=== PATIENT | female | born 1995 | race Caucasian/White ===

== ENCOUNTER 2025-03-13 23:43 | Emergency (ER) | payer OTHER, SELFPAY ==
[2025-03-13 23:52] VITALS: BP 173/99; PULSE 98; RESP 14; TEMP 36.7; O2SAT 100; BMI 35.9
--- NOTE | 2025-03-13 23:55 | XR_ITS ---
PROCEDURE INFORMATION: Exam: XR Left Hand Exam date and time: 03/14/2025 12:16 AM Age: 29 years old Clinical indication: Pain; Hand; Left; Additional info: Dog bite 3rd digit TECHNIQUE: Imaging protocol: Radiologic exam of the left hand. Views: 3 or more views. COMPARISON: No relevant prior studies available. FINDINGS: Bones/joints: No acute displaced fracture, dislocation or osseous destructive process. Question nondisplaced fracture of the distal tuft of the 3rd digit. Soft tissues: Soft tissue swelling of the distal aspect of the 3rd digit. No radiopaque foreign body. IMPRESSION: 1. Question nondisplaced fracture of the distal tuft of the 3rd digit. 2. Soft tissue swelling of the distal 3rd digit. No radiopaque foreign body.
--- NOTE | 2025-03-14 00:08 | ED_ITS ---
Discharge Plan Disposition Patient Disposition: Home, Self-Care Condition: Good Prescriptions Prescriptions: New amoxicillin-pot clavulanate 875-125 mg tablet 1 tab PO BID 7 Days Qty: 14 0RF amoxicillin-pot clavulanate 875-125 mg tablet 1 tab PO BID 7 Days Qty: 14 0RF amoxicillin-pot clavulanate 875-125 mg tablet 1 tab PO BID 7 Days Qty: 14 0RF Referrals Follow up/Referrals: Moises Stearns DO [Primary Care Provider, Family Practice] - See instructions Activity Restrictions/Add. Instructions Additional Instructions/Restrictions: Please take antibiotics as prescribed for treatment of dog bite. Please follow- up with your primary care provider. Please return to the emergency department if you develop any new or worsening symptoms or become concerned for your health. Clinical Impressions Clinical Impression: Dog bite Qualifiers: Encounter type: initial encounter Qualified Code(s): W54.0XXA - Bitten by dog, initial encounter Subungual hematoma of digit of hand Qualifiers: Encounter type: initial encounter Qualified Code(s): S60.10XA - Contusion of unspecified finger with damage to nail, initial encounter Instructions Patient Instructions: Animal Bites Print Language Print Language: Tristanian Discharge ED Provider: Raffy Jackson General Adult HPI General Chief complaint: Animal Bite Stated complaint: dog bite finger Time Seen by Provider: 03/13/25 23:45 Mode of Arrival: Ambulatory Source of Information: Patient Description of Symptoms (Recalled from ER Triage Doc. by RN): Pt reports her dogs got into fight and ended up with bite to 3rd digit to left hand. Bleeding controlled. Pt reports dog shots are UTD. History of Present Illness HPI narrative: 29-year-old female presents after having her left third digit bit by her dog. She reports the dog's shots are up-to-date. She has some bruising underneath the fingernail as well as some lacerations to the distal finger. It happened shortly prior to arrival. Related Data Previous Rx's ?Medication ?Instructions ?Recorded amoxicillin 875 mg-potassium 1 tab PO BID 7 days #14 t abs 03/14/25 clavulanate 125 mg tablet amoxicillin 875 mg-potassium 1 tab PO BID 7 days #14 t abs 03/14/25 clavulanate 125 mg tablet amoxicillin 875 mg-potassium 1 tab PO BID 7 days #14 t abs 03/14/25 clavulanate 125 mg tablet Allergies Allergy/AdvReac Type Severity Reaction Status Date / Time cefixime (From Suprax) Allergy Other Verified 03/13/25 23:59 [facility] Disclaimer: The information contained in this section may have been updated after the patient was seen, as this information can be updated by other users. Social History Smoking Status: Never smoker alcohol intake: never current occupational status: employed Travel in the last 8 weeks?: None ROS Obtained: Yes All systems reviewed & no additional complaints except as documented Physical Exam General General appearance: alert and in no apparent distress Head Head exam: atraumatic and normocephalic Eye Eye exam: Present normal appearance, PERRL and EOMI ENT ENT exam: Present normal oropharynx and normal external ear exam Neck Neck exam: Present normal inspection and full ROM Chest Chest inspection: Present normal inspection and symmetric chest wall rise; Absent tenderness Respiratory Respiratory exam: Present normal lung sounds bilaterally; Absent respiratory distress Cardiovascular Cardiovascular exam: Present regular rate and normal rhythm Abdominal Exam Abdominal exam: Present soft; Absent distention, tenderness or guarding Extremities Exam Extremities exam: Present other (Subungual hematoma of the left third digit. Small laceration lateral to the fingernail.); Absent edema or joint swelling Back Exam Back exam: Present normal inspection; Absent tenderness Neurological Exam Neurological exam: Present alert and oriented X3; Absent motor sensory deficit Psychiatric Psychiatric exam: Present normal affect and normal mood Skin Skin exam: Present warm, dry and normal color Lymphatic Lymphatic Findings: no adenopathy Medical Decision Making Medical Records Medical records reviewed: Yes I reviewed the patient's medical records. Screening: Per USPSTF and CDC recommendations, given the prevalence of disease in our region, it is our hospital?s policy to screen for HIV and viral Hepatitis for all patients aged 18 and over and those with ongoing risk factors. Sohan Inquiry Pt receiving controlled substance: No Sohan was queried for this patient: No Vital Signs: 03/13/25 23:52 03/14/25 00:59 Temperature 98.1 F 97.8 F Temperature Source Oral Oral Pulse Rate 89 Pulse Rate [Left] 98 H Respiratory Rate 14 14 Blood Pressure 138/86 Blood Pressure [Right Arm] 173/99 H Blood Pressure Mean [Right Arm] 123 Blood Pressure Source Automatic Cuff Blood Pressure Source [Right Arm] Automatic Cuff Blood Pressure Position Sitting Blood Pressure Position [Right Arm] Sitting 02 Sat by Pulse Oximetry 100 Oxygen Delivery Method Room Air Room Air Lab Data Lab results reviewed: Yes I reviewed the patient's lab results. Orders (Tests/Meds): ED MEDICATIONS Discontinued Medications Generic Name Dose Route Start Last Admin Trade Name Dann PRN Reason Stop Dose Admin Amoxicillin/Clavulanate Potassium 1 each 03/13/25 23:55 03/14/25 00:12 Amoxicillin/Clavulanate Potassium 875/125mg Tablet PO 03/13/25 23:56 1 each ONCE ONE Administration Tetanus/Reduced Diphtheria/Acell Pertussis 0.5 ml 03/13/25 23:55 03/14/25 00:12 Tet/Diphth/Pert-Adult 0.5ml Syringe IM 03/13/25 23:56 0.5 ml .ONCE ONE Administration ORDERS Category Date Time Status Hand XR left minimum 3 views [XR hand LT min 3V] Stat Exams 03/13/25 23:55 Completed Medical Decision Narrative: 29-year-old female without significant past medical history presents for dog bite to the left third distal digit. History was obtained via interactive discussion with patient, family. On arrival, patient is [afebrile, hemodynamically stable, satting appropriately, alert, oriented x4, GCS 15], moving all extremities spontaneously. Full physical exam performed and significant for findings as documented above, subungual hematoma with small laceration adjacent Differential includes but is not limited to fracture, laceration, subungual hematoma. Patient was given Augmentin and Tdap for symptomatic management and correction of underlying abnormalities. Workup initiated including radiograph of the left hand.. On re-evaluation, patient [remains afebrile, HD stable.] Imaging independently interpreted by me and significant for possible nondisplaced fracture of the left distal phalanx of the third digit. See radiology read for full review of final results. Given patient history, exam and workup, patient's presentation most likely represents dog bite with subungual hematoma and small laceration, possible tuft fracture. I communicated these findings with patient. The wound was cleaned. The hematoma was relieved with Bovie cautery. I did not repair the laceration due to concern for infection. She was given wound care instructions, placed in a small AlumaFoam splint by me for possible tuft fracture. Return precautions given. Procedures Risk/Benefits of Procedure(s) Were Explained: Yes Orthopedic Splinting/Casting Injury #1: Side: left Upper Extremity Injury Location: finger (3rd) Upper Extremity Immobilizer: aluminum form splint Post Cast/Splinting Neuro Status: intact Post Cast/Splinting Vasc Status: intact Nail Trephination Location (finger): left and middle Sterile prep: chlorhexidine Method of drainage: nail cautery Procedure successful: Yes Patient tolerated procedure: no complications Critical Care Critical Care Time Critical Care Time: No
[2025-03-14] MEDS: AMOXICILLIN/CLAVULANATE POTASSIUM 875/125MG TABLET 1 EACH PO (00:12)
[2025-03-14] MEDS: TET/DIPHTH/PERT-ADULT 0.5ML SYRINGE 0.5 ML IM (00:12)
--- OUTSIDE RECORDS SUMMARY | 2025-03-14 00:47 | XMS_ITS | Data Portability ---
Author Organization [employer] [place] [facility] Address [address] [place] [address] Assessment Encounter Date Assessment Date Assessment LastModified by Organization Details LastModified Time 03/24/2023 03/24/2023 Annual gynecological exam performed. Patient will come back in a year unless there are new symptoms. [email or web address] Not available 03/24/2023 10:34:26 Plan of Treatment Reminders Order Date Submit Date Provider Last Modified By Organization Details Last Modified Time Details Appointments None recorded. Lab TSH, serum or plasma 2023 024 [email or web address] [facility], [address], [place], [address], 4 09:47:01 CMP, serum or plasma 2023 024 [email or web address] [facility], [address], [place], [address], 4 09:47:01 CBC w/ auto diff 2023 024 [email or web address] [facility], [address], [place], [address], 4 09:47:01 vitamin D, 25-hydroxy , total, serum 2023 024 [email or web address] [facility], [address], [place], [address], 4 09:47:01 vitamin B12 + folate, serum or blood 2023 024 [email or web address] [facility], [address], [place], [address], 4 09:47:01 HbA1c (hemoglobi n A1c), blood 2023 024 [email or web address] [facility], [address], [place], [address], 4 09:47:01 vitamin D, 25-hydroxy , total, serum 2023 024 [facility] [address] [place], [address], 4 08:16:32 CBC w/ auto diff 2023 024 [facility] [address] [place], [address], 4 08:16:30 CMP, serum or plasma 2023 024 [facility] [address] [place], [address], 4 08:16:31 TSH + free T4, serum 2023 024 [email or web address] [address] [place], [address], 4 08:16:29 vitamin B12 + folate, serum or blood 2023 024 [email or web address] ([place]), [address] [place], [address], 4 08:16:31 HbA1c (hemoglobi n A1c), blood 2023 024 [email or web address] [address] [place], [address], 4 08:16:32 unlisted lab - sureswab(R ) advanced vaginitis plus, tma 2022 023 [email or web address] [facility], [address], [place], [address], 3 10:34:34 pap, LB 2022 023 [employer] [facility], [address], [place], [address], 3 11:47:37 Referral None recorded. Procedures None recorded. Surgeries None recorded. Imaging US, pelvis 2022 023 [facility], [address], [place], [address], 3 11:39:25 Medication Orders Myfembree 40 mg-1 mg-0.5 mg tablet 2022 023 [email or web address] 24 Not available 4 09:40:17 ceftriaxon e 500 mg solution for injection 2022 023 [email or web address] 24 Not available 4 09:39:55 metronidaz ole 500 mg tablet 2022 024 [email or web address] Not available 4 16:23:24 doxycyclin e hyclate 100 mg capsule 2022 024 [email or web address] Not available 4 16:19:18 Patient TargetsNo targets recorded. Patient Instructions Encounter Date Encounter Id Patient Instructions Last Modified By Organization Details Last Modified Time 11/24/2023 [id number] body mass index: care instructions Not available 11/24/2023 10:04:47 learning about healthy weight Not available 11/24/2023 10:04:48 Reason for Referral None Reported. Results Created Date Observation Date Name Description Value Unit Range Abnormal Flag Note LastModifiedBy Organization Detail LastModifiedTime 03/24/20 23 03/25/2023 SURES WAB(R ) ADVAN DEJUAN VAGIN ITIS PLUS, TMA sureswab(R) adv bacterial vaginosis (bv), tma NEGATI VE negati ve normal Not Available [facility] [address] [facility], [place], [address], 03/25/2023 12:13:11 03/24/20 23 03/25/2023 SURES WAB(R ) ADVAN DEJUAN VAGIN ITIS PLUS, TMA alisson species NOT DETECT ED not detect ed normal Not Available [facility] [address] [facility] [facility], [place], [address], 03/25/2023 12:13:11 03/24/2003/25/2023 SURES WAB(R ) ADVAN DEJUAN VAGIN ITIS PLUS, TMA alisson glabrata NOT DETECT ED not detect ed normal Qi da speci es C. albic ans, C. tropi calis , C. parap michelle is, and/o r C. dubli niens is can be detec inge, but not diffe renti ated, in the Qi da spp. resul t. Not Available [facility] [address] [facility] [facility], [place], [address], 03/25/2023 12:13:11 03/24/20 23 03/25/2023 SURES WAB(R ) ADVAN DEJUAN VAGIN ITIS PLUS, TMA trichomonas vaginalis (TV), tma NOT DETECT ED not detect ed normal Not Available [facility] [address], [place], [address], 03/25/2023 12:13:11 03/24/20 23 03/25/2023 SURES WAB(R ) ADVAN DEJUAN VAGIN ITIS PLUS, TMA chlamydia trachomatis RNA, tma, urogenital NOT DETECT ED not detect ed normal Not Available [facility] [address] [facility], [place], [address], 03/25/2023 12:13:11 03/24/20 23 03/25/2023 SURES WAB(R ) ADVAN DEJUAN VAGIN ITIS PLUS, TMA neisseria gonorrhoeae RNA, tma, urogenital NOT DETECT ED not detect ed normal For addit ional infor paty thrasher refer to https ://ed ucati on.qu estdi UYA100. com/f aq/FA Q154 (This link is being provi ded for infor jeff alcala/ sin pepper purpo ses only. ) Not Available [facility] [address], [place], [place], [address], 03/25/2023 12:13:11 03/24/20 23 03/29/2023 IMAGE -GUID ED PAP W/AGE BASED SCR LEVI COLS comment This order for age-b ased cervi mallory cance r and STI scree david follo ws ACOG guide lines (PB 168, 140, FAQ07 1). See indiv idual assay s for perfo rming site locat ion. Not Available [facility] [address], [place], [place], [address], 03/29/2023 11:47:37 03/24/20 23 03/29/2023 IMAGE -GUID ED PAP W/AGE BASED SCR LEVI COLS clinical information: normal None given Not Available [facility] [address], [place], [place], [address], 03/29/2023 11:47:37 03/24/20 23 03/29/2023 IMAGE -GUID ED PAP W/AGE BASED SCR LEVI COLS LMP: normal NONE GIVEN Not Available [facility] [address], [place], [place], [address], 03/29/2023 11:47:37 03/24/20 23 03/29/2023 IMAGE -GUID ED PAP W/AGE BASED SCR LEVI COLS prev. Pap: normal NONE GIVEN Not Available [facility] [address], [place], [address], 03/29/2023 11:47:37 03/24/20 23 03/29/2023 IMAGE -GUID ED PAP W/AGE BASED SCR LEVI COLS prev. BX: normal NONE GIVEN Not Available [facility] [address] [facility] [facility], [place], [address], 03/29/2023 11:47:37 03/24/20 23 03/29/2023 IMAGE -GUID ED PAP W/AGE BASED SCR LEVI COLS source: normal Vagin a, Cervi x, Endoc ervix Not Available [facility] [address] [facility], [place], [address], 03/29/2023 11:47:37 03/24/20 23 03/29/2023 IMAGE -GUID ED PAP W/AGE BASED SCR LEVI COLS statement of adequacy: normal Satis facto ry for evalu ation . Endoc ervic al/tr ansfo rmati on zone compo nent prese nt. Age and/o r menst rual statu s not provi ded Not Available [facility] [address] [facility], [place], [address], 03/29/2023 11:47:37 03/24/20 23 03/29/2023 IMAGE -GUID ED PAP W/AGE BASED SCR LEVI COLS interpretati on/result: normal Cytol ogy Resul ts: Negat dave for intra epith elial lesio n or malig bria . Not Available [facility] [address] [facility], [place], [address], 03/29/2023 11:47:37 03/24/20 23 03/29/2023 IMAGE -GUID ED PAP W/AGE BASED SCR LEVI COLS comment: normal This Pap test has been evalu ated with compu ter sidney inge techn ology . Not Available [facility] [address] [facility] [address] [facility], [place], [address], 03/29/2023 11:47:37 03/24/20 23 03/29/2023 IMAGE -GUID ED PAP W/AGE BASED SCR LEVI COLS cytotechnolo gist: normal SZS, CT( CP) CT Scree david locat ion: [facility] [place] [address] [address] Not Available [facility] [address] [facility], [place], [address], 03/29/2023 11:47:37 03/24/20 23 03/29/2023 IMAGE -GUID ED PAP W/AGE BASED SCR LEVI COLS comment EXPLA NATOR Y NOTE: The Pap is a scree david test for cervi mallory cance r. It is not a diagn ostic test and is subje ct to false negat dave and false posit dave resul ts. It is most relia ble when a satis facto ry sampl e, regul bacilio obtai jacqueline, is submi tted with relev ant clini mallory findi ngs and histo ry, and when the Pap resul t is evalu ated along with histo jc and curre nt clini mallory infor matio n. Not Available [facility] [address] [facility], [place], [address], 03/29/2023 11:47:37 11/24/19 24 11/25/2023 TSH+F REE T4 TSH 2.520 uIU/m L 0.450- 4.500 normal Not Available [facility] ([facility]) [address] [facility], [place], [address], 11/25/2023 08:16:29 11/24/19 24 11/25/2023 TSH+F REE T4 T4,free(dire ct) 1.23 NG/dL 0.82-1 .77 normal Not Available [facility] ([facility]) [address] [facility], [place], [address], 11/25/2023 08:16:29 11/24/19 24 11/25/2023 CBC WITH DIFFE RENTI AL/PL ATELE T WBC 8.9 x10e3 /uL 3.4-10 .8 normal Not Available [facility] ([facility]) [address] [place], [address], 11/25/2023 08:16:30 11/24/19 24 11/25/2023 CBC WITH DIFFE RENTI AL/PL ATELE T RBC 4.63 x10e6 /uL 3.77-5 .28 normal Not Available [facility] ([facility]) [address] [place], [address], 11/25/2023 08:16:30 11/24/1911/25/2023 CBC WITH DIFFE RENTI AL/PL ATELE T hemoglobin 12.0 g/dL 11.1-1 5.9 normal Not Available [facility] ([facility]) [address] [place], [address], 11/25/2023 08:16:30 11/24/1911/25/2023 CBC WITH DIFFE RENTI AL/PL ATELE T hematocrit 38.5 % 34.0-4 6.6 normal Not Available [facility] ([facility]) [address] [place], [address], 11/25/2023 08:16:30 11/24/1911/25/2023 CBC WITH DIFFE RENTI AL/PL ATELE T MCV 83 fL 79-97 normal Not Available [facility] ([facility]) [address] [place], [address], 11/25/2023 08:16:30 11/24/1911/25/2023 CBC WITH DIFFE RENTI AL/PL ATELE T MCH 25.9 pg 26.6-3 3.0 below low normal Not Available [facility] ([facility]) [address] [place], [address], 11/25/2023 08:16:30 11/24/1911/25/2023 CBC WITH DIFFE RENTI AL/PL ATELE T MCHC 31.2 g/dL 31.5-3 5.7 below low normal Not Available [facility] ([facility]) [address] [facility], [place], [address], 11/25/2023 08:16:30 11/24/19 24 11/25/2023 CBC WITH DIFFE RENTI AL/PL ATELE T RDW 15.2 % 11.7-1 5.4 Not Available [facility] ([facility]) [address] [facility], [place], [address], 11/25/2023 08:16:30 11/24/1911/25/2023 CBC WITH DIFFE RENTI AL/PL ATELE T platelets 267 x10e3 /uL 150-45 0 normal Not Available [facility] ([facility]) [address] [place], [address], 11/25/2023 08:16:30 11/24/19 24 11/25/2023 CBC WITH DIFFE RENTI AL/PL ATELE T neutrophils 59 % not estab. normal Not Available [facility] ([facility]) [address] [place], [address], 11/25/2023 08:16:30 11/24/19 24 11/25/2023 CBC WITH DIFFE RENTI AL/PL ATELE T lymphs 30 % not estab. normal Not Available [facility] ([facility]) [address] [place], [address], 11/25/2023 08:16:30 11/24/19 24 11/25/2023 CBC WITH DIFFE RENTI AL/PL ATELE T monocytes 7 % not estab. normal Not Available [facility] ([facility]) [address] [place], [address], 11/25/2023 08:16:30 11/24/19 24 11/25/2023 CBC WITH DIFFE RENTI AL/PL ATELE T eos 2 % not estab. normal Not Available [facility] ([facility]) [address] [place], [address], 11/25/2023 08:16:30 11/24/19 24 11/25/2023 CBC WITH DIFFE RENTI AL/PL ATELE T basos 1 % not estab. normal Not Available [facility] ([facility]) [address] [facility], [place], [address], 11/25/2023 08:16:30 11/24/19 24 11/25/2023 CBC WITH DIFFE RENTI AL/PL ATELE T immature cells FUR DESIGNER Not Available [facility] ([facility]) [address] [place], [address], 11/25/2023 08:16:30 11/24/19 24 11/25/2023 CBC WITH DIFFE RENTI AL/PL ATELE T neutrophils (absolute) 5.3 x10e3 /uL 1.4-7. 0 normal Not Available [facility] ([facility]) [address] [place], [address], 11/25/2023 08:16:30 11/24/19 24 11/25/2023 CBC WITH DIFFE RENTI AL/PL ATELE T lymphs (absolute) 2.7 x10e3 /uL 0.7-3. 1 normal Not Available [facility] ([facility]) [address] [place], [address], 11/25/2023 08:16:30 11/24/19 24 11/25/2023 CBC WITH DIFFE RENTI AL/PL ATELE T monocytes(ab solute) 0.6 x10e3 /uL 0.1-0. 9 normal Not Available [facility] ([facility]) [address] [place], [address], 11/25/2023 08:16:30 11/24/19 24 11/25/2023 CBC WITH DIFFE RENTI AL/PL ATELE T eos (absolute) 0.1 x10e3 /uL 0.0-0. 4 normal Not Available [facility] ([facility]) [address] [facility], [place], [address], 11/25/2023 08:16:30 11/24/19 24 11/25/2023 CBC WITH DIFFE RENTI AL/PL ATELE T baso (absolute) 0.1 x10e3 /uL 0.0-0. 2 normal Not Available [facility] ([facility]) [address] [facility], [place], [address], 11/25/2023 08:16:30 11/24/19 24 11/25/2023 CBC WITH DIFFE RENTI AL/PL ATELE T immature granulocytes 1 % not estab. Not Available [facility] ([facility]) [address] [facility], [place], [address], 11/25/2023 08:16:30 11/24/19 24 11/25/2023 CBC WITH DIFFE RENTI AL/PL ATELE T immature grans (abs) 0.1 x10e3 /uL 0.0-0. 1 Not Available [facility] ([facility]) [address] [place], [address], 11/25/2023 08:16:30 11/24/19 24 11/25/2023 CBC WITH DIFFE RENTI AL/PL ATELE T NRBC FUR DESIGNER Not Available [facility] ([facility]) [address] [place], [address], 11/25/2023 08:16:30 11/24/19 24 11/25/2023 CBC WITH DIFFE RENTI AL/PL ATELE T hematology comments: FUR DESIGNER Not Available [facility] ([facility]) [address] [place], [address], 11/25/2023 08:16:30 11/24/19 24 11/25/2023 COMP. METAB OLIC PANEL (14) glucose 91 mg/dL 70-99 normal Not Available [facility] ([facility]) [address] [place], [address], 11/25/2023 08:16:30 11/24/19 24 11/25/2023 COMP. METAB OLIC PANEL (14) BUN 12 mg/dL 6-20 normal Not Available [facility] ([facility]) [address] [place], [address], 11/25/2023 08:16:30 11/24/19 24 11/25/2023 COMP. METAB OLIC PANEL (14) creatinine 0.89 mg/dL 0.57-1 .00 normal Not Available [facility] ([facility]) [address] [place], [address], 11/25/2023 08:16:30 11/24/19 24 11/25/2023 COMP. METAB OLIC PANEL (14) eGFR 92 mL/mi n/1.7 3 >59 normal Not Available [facility] ([facility]) [address] [place], [address], 11/25/2023 08:16:30 11/24/19 24 11/25/2023 COMP. METAB OLIC PANEL (14) BUN/creatini ne ratio 13 9-23 normal Not Available [facility]) [address] [facility] [place], [address], 11/25/2023 08:16:30 11/24/19 24 11/25/2023 COMP. METAB OLIC PANEL (14) sodium 139 mmol/ L 134-14 4 normal Not Available [facility] ([facility]) [address] [facility] [place], [address], 11/25/2023 08:16:30 11/24/19 24 11/25/2023 COMP. METAB OLIC PANEL (14) potassium 4.4 mmol/ L 3.5-5. 2 normal Not Available [facility] ([facility]) [address] [facility] [place], [address], 11/25/2023 08:16:30 11/24/19 24 11/25/2023 COMP. METAB OLIC PANEL (14) chloride 101 mmol/ L 96-106 normal Not Available [facility] ([facility]) [address] [place], [address], 11/25/2023 08:16:30 11/24/19 24 11/25/2023 COMP. METAB OLIC PANEL (14) carbon dioxide, total 24 mmol/ L 20-29 normal Not Available [facility] ([facility]) [address] [place], [address], 11/25/2023 08:16:30 11/24/19 24 11/25/2023 COMP. METAB OLIC PANEL (14) calcium 9.2 mg/dL 8.7-10 .2 normal Not Available [facility] ([facility]) [address] [place], [address], 11/25/2023 08:16:30 11/24/19 24 11/25/2023 COMP. METAB OLIC PANEL (14) protein, total 6.9 g/dL 6.0-8. 5 normal Not Available [facility] ([facility]) [address] [place], [address], 11/25/2023 08:16:30 11/24/19 24 11/25/2023 COMP. METAB OLIC PANEL (14) albumin 3.9 g/dL 4.0-5. 0 below low normal Not Available [facility] ([facility]) [address] [place], [address], 11/25/2023 08:16:30 11/24/19 24 11/25/2023 COMP. METAB OLIC PANEL (14) globulin, total 3.0 g/dL 1.5-4. 5 Not Available [facility] ([facility]) [address] [place], [address], 11/25/2023 08:16:30 11/24/19 24 11/25/2023 COMP. METAB OLIC PANEL (14) bilirubin, total 1.0 mg/dL 0.0-1. 2 normal Not Available [facility] ([facility]) [address] [facility], [place], [address], 11/25/2023 08:16:30 11/24/19 24 11/25/2023 COMP. METAB OLIC PANEL (14) alkaline phosphatase 115 IU/L 44-121 normal Not Available [facility]) [address] [facility] [place], [address], 11/25/2023 08:16:30 11/24/19 24 11/25/2023 COMP. METAB OLIC PANEL (14) AST (SGOT) 36 IU/L 0-40 normal Not Available [facility] ([facility]) [address] [place], [address], 11/25/2023 08:16:30 11/24/19 24 11/25/2023 COMP. METAB OLIC PANEL (14) ALT (SGPT) 47 IU/L 0-32 above high normal Not Available [facility] ([facility]) [address] [facility], [place], [address], 11/25/2023 08:16:30 11/24/19 24 11/25/2023 VITAM IN B12 AND FOLAT E vitamin B12 1107 pg/mL 232-12 45 normal Not Available [facility] ([facility]) [address] [place], [address], 11/25/2023 08:16:31 11/24/19 24 11/25/2023 VITAM IN B12 AND FOLAT E folate (folic acid), serum 10.1 NG/mL >3.0 normal A serum folat e bianca ntrat ion of less than 3.1 ng/mL is consi dered to repre sent clini mallory defic iency . Not Available [facility] ([facility]) [address] [facility], [place], [address], 11/25/2023 08:16:31 11/24/19 24 11/25/2023 HEMOG LOBIN A1C hemoglobin A1C 5.3 % 4.8-5. 6 normal Predi abete s: 5.7 - 6.4 Diabe светлана: >6.4 Glyce claudia contr ol for adult s with diabe светлана: <7.0 Not Available [facility] ([facility]) [address] [facility], [place], [address], 11/25/2023 08:16:31 11/24/19 24 11/25/2023 VITAM IN D, 25-HY DROXY vitamin D, 25-hydroxy 41.7 NG/mL 30.0-1 00.0 Vitam in D defic iency has been defin ed by the Insti tute of Medic ine and an Endoc rine Socie ty pract ice guide line as a level of serum 25-OH vitam in D less than 20 ng/mL (1,2) . The Endoc rine Socie ty went on to furth er defin e vitam in D insuf ficie ncy as a level betwe en 21 and 29 ng/mL (2). 1. IOM (Inst itute of Medic ine). 2009. Dieta ry refer ence intak es for calci um and D. Chencho red [place]: The [facility] . 2. Toya bridges [place], Lauri valdivia [place], Wil off-F errar i PONCE, et al. Evalu ation , treat ment, and preve ntion of vitam in D defic iency : an Endoc rine Socie ty clini mallory pract ice guide line. JCEM. 2010; 96(7) :1911 -30. Not Available [facility] ([facility]) [address] [facility], [place], [address], 11/25/2023 08:16:32 04/06/20 23 04/06/2023 , adrien olson No observ ation record ed. [email or web address] [facility] [address], [address], 04/06/2023 13:04:18 Result Notes None recorded. Problems Name Problem SNOMED Code Status Onset Date Resolution Date Notes Provider Name and Address Organization Details Recorded Time Pelvic and perineal pain 763454844 Active 2022 Tawana Larson, [employer]GR[employer] [address] [place], [address], [employer] 3 10:52:33 Acute pelvic inflammatory disease 105595214 Active 2022 Tawana Larson, TELEVISION NEWS PHOTOGRAPHER [address] [place] [address], [phone], [employer] [facility] 3 11:01:38 Endometriosis (clinical) 426689335 Active 2022 Tawana Larson, TELEVISION NEWS PHOTOGRAPHER [address] [place] [address], [phone], [employer] 3 12:10:41 Fatigue 84474939 Active 2023 Tawana Larson, TELEVISION NEWS PHOTOGRAPHER [address] [place], [address], [employer] [facility] 4 09:50:48 Hot sweats 701420842 Active 2023 Tawana Larson, TELEVISION NEWS PHOTOGRAPHER [address] [place] [address], [phone], [employer] 4 09:51:49 Problem Notes None recorded. Procedures Surgical History Date Name Laterality Status Provider Name and Address Organization Details Recorded Time 3 Date of Last Pap Smear completed [employer] 04/06/2023 11:29:21 extraction of wisdom tooth completed [employer] 04/06/2023 11:30:12 Colonoscopy completed [employer] 04/06/2023 11:30:22 Imaging Results None recorded. Procedure Notes None recorded. Medical Equipment None Reported. Allergies No known drug allergies Medications Name Sig Start Date Stop Date Status Note LastModified by Organization Details LastModified Time doxycycline hyclate 100 mg capsule TAKE 1 CAPSULE BY MOUTH DAILY WITH FOOD AND FULL GLASS OF WATER. DO NOT LIE DOWN 1 HOUR AFTER TAKING 11/23 completed Not Available Not Available Not Available atorvastati n 10 mg tablet 11/23 completed Not Available Not Available Not Available fluconazole 150 mg tablet 11/23 completed Not Available Not Available Not Available metronidazo le 500 mg tablet Take 1 tablet every 12 hours by oral route. 11/23 completed Not Available Not Available Not Available ciprofloxac in 500 mg tablet 03/24 completed Not Available Not Available Not Available dicyclomine 20 mg tablet 03/24 completed Not Available Not Available Not Available ceftriaxone 500 mg solution for injection Take 500 mg by injection route. 11/23 completed Not Available Not Available Not Available furosemide 20 mg tablet TAKE 1 TABLET BY MOUTH EVERY DAY FOR 7 DAYS DIRECTED 11/23 completed Not Available Not Available Not Available scopolamine 1 mg over 3 days transdermal patch 03/24 completed Not Available Not Available Not Available albuterol sulfate HFA 90 mcg/actuati on aerosol inhaler 11/23 completed Not Available Not Available Not Available propranolol 20 mg tablet 11/23 completed Not Available Not Available Not Available ondansetron 4 mg disintegrat ing tablet DISSOLVE 1 TABLET ON THE TONGUE THREE TIMES DAILY FOR 7 DAYS NEEDED 11/23 completed Not Available Not Available Not Available loratadine 10 mg tablet active Not Available Not Available Not Available atomoxetine 40 mg capsule 11/23 completed Not Available Not Available Not Available desvenlafax ine succinate ER 50 mg tablet,exte nded release 24 hr TAKE 1 TABLET BY MOUTH EVERY DAY DIRECTED active Not Available Not Available No t Available Myfembree 40 mg-1 mg-0.5 mg tablet 11/23 completed Not Available Not Available Not Available Zepbound 2.5 mg/0.5 mL subcutaneou s pen injector ADMINISTE R 2.5 MG UNDER THE SKIN EVERY WEEK DIRECTED active Not Available Not Available No t Available Vitals Date Recorded Body height Body mass index (BMI) Body weight Heart rate Oxygen saturation Systolic And Diastolic Provider Name and Address Organization Details Last Updated DateTime 4 167.64 cm 47.5 kg/m2 257511. 16 g 83 /min 98 % 122/78 mm[Hg] Juliet Weaver [employer] 4 09:39:12 Date Recorded Body height Body mass index (BMI) Body weight Systolic And Diastolic Provider Name and Address Organization Details Last Updated DateTime 03/24/2023 167.64 cm 47.1 kg/m2 536294.25 g 124/70 mm[Hg] BRADY PENG [employer]. 03/24/2023 10:41:11 Date Recorded Body height Body mass index (BMI) Body weight Systolic And Diastolic Provider Name and Address Organization Details Last Updated DateTime 04/06/2023 167.64 cm 46.5 kg/m2 148904.04 g 120/78 mm[Hg] Juliet Weaver [employer]. 04/06/2023 11:28:23 Social History Question Answer Notes LastModified by Organizat ion Details LastModified Time Tobacco Smoking Status Never Smoker BRADY oneil [employer]. 03/24/2023 10:35:02 Do You Have An Advance Directive? Yes Information not available 03/24/2023 Is Your Home Air Conditioned? Yes Information not available 03/24/2023 Do You Wear A Helmet When Biking? Yes Information not available 03/24/2023 Are You Blind Or Do You Have Difficulty Seeing? No Information not available 03/24/2023 What Is Your Level Of Caffeine Consumption? Occasional Information not available 03/24/2023 Are You Deaf Or Do You Have Serious Difficulty Hearing? No Information not available 03/24/2023 What Type Of Diet Are You Following? REGULAR Information not available 03/24/2023 How Many Days Of Moderate To Strenuous Exercise, Like A Brisk Walk, Did You Do In The Last 7 Days? 4 Information not available 03/24/2023 Have There Been Any Changes To Your Family Or Social Situation? No Information no t available 03/24/2023 Are There Any Guns Present In Your Home? No Information not available 03/24/2023 Which Of Your Hands Is Dominant? Right Information not available 03/24/2023 Do You Have A Medical Power Of Credit Reporter? Yes Information not available 03/24/2023 What Was The Date Of Your Most Recent Tobacco Screening? 11/24/2023 [email or web address] Information not available 11/22/2023 Do You Have Any Pets? Yes Information not available 03/24/2023 Do You Use Protection During Sex? No Information not available 03/24/2023 What Is Your Relationship Status? Domestic Partner Information not available 03/24/2023 Have You Repeated Any Grades? No Information not available 03/24/2023 Do You Use Your Seat Belt Or Car Seat Routinely? Yes Information not available 03/24/2023 Are You Sexually Active? Yes Information not available 03/24/2023 Do You Have Smoke And Carbon Monoxide Detectors In Your Home? Yes Information not available 03/24/2023 Are You Passively Exposed To Smoke? No Information no t available 03/24/2023 Are There Any Smokers In Your House? No Information not available 03/24/2023 Do You Use Sunscreen Routinely? Yes Information not available 03/24/2023 Has Tobacco Cessation Counseling Been Provided? No [email or web address] Information not available 11/24/2023 Do You Have Difficulty Walking Or Climbing Stairs? No Information not available 03/24/2023 Sex: Female Functional Status Question Answer Note LastModified by Organizat ion Details LastModified Time Do you use any illicit or recreational drugs? No Information not available 03/24/2023 Do you or have you ever used any other forms of tobacco or nicotine? No [email or web address] Information not available 11/24/2023 What is your level of alcohol consumption? None Information not available 11/24/2023 Are you currently employed? Yes Information not available 03/24/2023 Are you able to walk independently without assistance or assistive devices? YESWOREST Information not available 03/24/2023 Do you have difficulty doing errands alone? No Information not available 03/24/2023 Are you able to care for yourself independently? Yes Information not available 03/24/2023 Do you have difficulty dressing, bathing, grooming, or toileting? No Information not available 03/24/2023 What is your exercise level? Occasional Information not available 03/24/2023 Mental Status Question Answer Note LastModified by Organization D etails LastModified Time Do you have difficulty concentrating, remembering or making decisions? No Information no t available 03/24/2023 Are you or have you been involved with bullying? No Information not available 03/24/2023 Family History Nothing Reported. Medical History Condition Response Allergies (Food, seasonal, environmental ) Y Other N Hyperthyroidism N Blood Transfusion N Breast Cancer N Drug/Latex Allergies/Reactions N Emergency room visit since last appointm ent. N Lung Disease N Hypothyroidism N Dermatologic Disorders N Defects or Inherited Disease N Breast Problem N Gestational Diabetes N Hematologic disorders N Anesthesia Complications N History of STI N Deep Vein Thrombosis N Polycystic ovary syndrome N Anxiety Disorder N Autoimmune disease N Vision or Eye Problems N Arthritis N Polyps N Infertility N Mental Disorder N Congenital Anomalies N History of abnormal pap N Acid Reflux (GERD) N Cancer N Stroke N Neurologic/Epilepsy N Endometriosis N High Cholesterol N Psychiatric/Mental Health Condition N Organ Transplant N Schizophrenia N Headaches N Fibromyalgia N Dialysis N Kidney Disease N Heart Problems N Hospitalizations N Thyroid Problems N Kidney or Bladder Problems N GI Problems N Acne N ADD/ADHD Y Eating Disorder N Anemia N Art (IVF or FET) N Mental Illness N Ovarian Cancer N Diabetes N Pulmonary (TB, Asthma) N Hepatitis/Liver Disease N Eczema N Abuse/Domestic Violence N Asthma N Trauma/Violence N Substance Abuse N Depression/ depression N Heart Disease N Pre-Eclampsia N Hypertension N Osteoporosis N Thrombophilias N Gynecological History Statement/Question Response Abnormal Pap N STIs/STDs N HPV Vaccine Y Current Control Method IUD Age at Menarche 14 Sexually Active? Y Menses Monthly N Date of Last Pap Smear 03/24/2023 Sexual Problems? Y LMP Desired Control Method IUD Obstetrics History GPAL:G 0 P 0 0 0 0 Immunizations Vaccine Type Date Status Note Provider Nam e and Address Organization Details Recorded Time Hib, unspecified formulation 9 completed Juliet oneil, [facility]. 04/06/2023 11:12:16 Hib, unspecified formulation 9 completed Juliet Owen null, [employer] 04/06/2023 11:12:16 Hib, unspecified formulation 8 completed Juliet Owen null, [employer] 04/06/2023 11:12:16 Hib, unspecified formulation 9 completed Juliet Owen null, [employer] 04/06/2023 11:12:16 meningococcal ACWY, unspecified formulation 6 completed Juliet Owen null, [employer] 04/06/2023 11:12:16 MMR 0 completed Juliet Owen null, [employer] 04/06/2023 11:12:16 MMR 2 completed Juliet Owen null, [employer] 04/06/2023 11:12:16 MMR 9 completed Juliet Owen null, [employer] 04/06/2023 11:12:16 COVID-19 vaccine, vector-nr, rS-Ad26, PF, 0.5 mL 2 completed Juliet Owen null, [employer] 04/06/2023 11:12:16 Tdap 4 completed Juliet Owen null, [employer] 04/06/2023 11:12:16 varicella 9 completed Juliet Owen null, [employer] 04/06/2023 11:12:16 varicella 9 completed Juliet Owen null, [employer] 04/06/2023 11:12:16 Hep B, unspecified formulation 9 completed Juliet Owen null, [employer] 04/06/2023 11:12:16 Hep B, unspecified formulation 8 completed Juliet Owen null, [employer] 04/06/2023 11:12:16 Hep B, unspecified formulation 8 completed Juliet Owen null, [employer] 04/06/2023 11:12:16 polio, unspecified formulation 9 completed Juliet Owen null, [employer] 04/06/2023 11:12:16 polio, unspecified formulation 0 completed Juliet Owen null, [employer] 04/06/2023 11:12:16 polio, unspecified formulation 2 completed Juliet Owen null, [employer] 04/06/2023 11:12:16 polio, unspecified formulation 8 completed Juliet Owen null, [employer] 04/06/2023 11:12:16 DTaP, unspecified formulation 9 completed Juliet Owen null, [employer] 04/06/2023 11:12:17 DTaP, unspecified formulation 0 completed Juliet Owen null, [employer] 04/06/2023 11:12:17 DTaP, unspecified formulation 9 completed Juliet Owen null, [employer] 04/06/2023 11:12:17 DTaP, unspecified formulation 2 completed Juliet Owen null, [employer] 04/06/2023 11:12:17 DTaP, unspecified formulation 8 completed Juliet Owen null, [employer] 04/06/2023 11:12:17 Influenza, split virus, quadrivalent, PF 8 completed Juliet Owen null, [employer] 04/06/2023 11:12:17 Pneumococcal Conjugate, unspecified formulation 0 completed Juliet Owen null, [employer] 04/06/2023 11:12:17 Past Encounters Encounter ID Performer Location Encounter Start Date Encounter Closed Date Diagnosis/Indication Diagnosis SNOMED-CT Code Diagnosis ICD10 Code Diagnosis IMO Codes Diagnosis Note [id number] Tawana Spalding, [facility] [address] [id number] 03/24/2023 10:27:45 03/24/2023 11:15:30 Pelvic and perineal pain 073105843 R10.2 Screening for malignant neoplasm of cervix 059207331 Z12.4 Surveillan ce of intrauterine device contraception done 2251673906 58242 Z30.431 Acute pelv ic inflammatory disease 661314584 N73.9 Gynecologi c examination 20488074 Z01.128 [id number] Tawana Larson [facility] [address] [id number] 04/06/2023 11:07:57 04/06/2023 13:11:43 Endometriosis (clinical) 851271922 N80.9 [id number] Tawana Larson [facility] [address] [address] 11/24/2023 09:33:56 11/24/2023 10:20:19 Fatigue 33991298 R53.83 Hot sweats 475790831 R61 Body mass index 40+ - severely obese 248184427 Z68.42 Health Concerns Section Related Observation LastModified by Organization Detai ls LastModified Time None Recorded Concern Status LastModified by Organization Details LastModified Time None Recorded Advance Directives Directive Y: Payers Insurance Date Sequence Insurance Name Policy Number Policy Coello Covered Member ID Coello Member ID Guarantor Name 03/24/2023 1 *SELF PAY* Alyse Liu 11/21/2023 1 [facility] Augustine Liu [id number] Sunshine Liu Notes Date Note Type Note Provider Name and Address Organization Details Recorded Time 03/24/2023 text/html Annual GYNReport ed by PatientROS as noted in the HPI Pt presents for annual [employer] exam. She is concerned for pelvic pain that has been present since December. She reports bilateral pelvic pain not alleviated with heating pads or medications. She was also having GI sx associated with this. Her PCP and GI have done workups. She had elevated liver enzymes. She was given bentyl. She reports she is still having pelvic pain. She has a Liletta that was placed last year. She is amenorrheic with the device. Prior to her IUD being placed her periods were monthly but heavy and painful. She reports a family h/o endometriosis and ovarian cysts and is concerned for that. She does experience dyspareunia at times. Nothing makes it better other than laying down. Tawana Larson APRN [address] [place], [address], [employer] 03/28/2023 08:44:12 04/06/2023 text/html ROS as noted in the HPI Pt presents to f/u on pelvic pain and dyspareunia. Her u/s is unremarkable and her swab and pap were normal. She reports the pain is worsening in intensity and vaginal penetration has become unbearable. Her IUD appears to be in the proper location and she does not want to have it removed at this time. She has been taking NSAIDs with no relief. She is tearful that the findings are normal. We discussed that endometriosis is a high possibility. She would like to try myfembree. We disucssed considering a referral for dx lap if no improvement. Tawana Larson APRN [address] [place], [address], [employer], [employer] 04/06/2023 12:59:35 11/24/2023 text/html ROS as noted in the HPI Pt presents with concern for recent fatigue, hot flashes and numbness and tingling in her hands after starting zepbound 2 weeks ago. Her PCP who prescribed the medication told her to stop it and she has a follow up with them in 2 weeks. She is concerned for a hormone issue, so she came here. We discussed checking labs, but that it is important for her to follow back up with her pcp regarding her sx. Tawana Larson APRN [address] [place], [address], [employer], [employer] 11/24/2023 10:05:38 OBGyn Episode No OBEpisode recorded.
[2025-03-14 00:59] VITALS: BP 138/86; PULSE 89; RESP 14; TEMP 36.6; O2SAT 99
== END 2025-03-14 01:06 | disposition home or self-care (01) ==
PROVIDERS: Emergency Provider Emergency Medicine; PCP Family Medicine
DX: S61.253A Open bite of left middle finger without damage to nail, initial encounter (principal); S60.132A Contusion of left middle finger with damage to nail, initial encounter; W54.0XXA Bitten by dog, initial encounter
CPT/HCPCS: 11740; 73130; 90471; 90715; 99284

== ENCOUNTER 2025-04-03 19:46 | Emergency (ER) | payer OTHER, SELFPAY ==
[2025-04-03 20:04] VITALS: BP 133/88; PULSE 98; RESP 16; TEMP 37; O2SAT 100; BMI 36.1
[2025-04-03] MEDS: CHARCOAL ACTIVATED 50GM (240ML) TUBE 50 GM PO (20:05)
--- NOTE | 2025-04-03 20:09 | PC.NURSE ---
MD Trip on phone with Poison Control. 4 Hr obs.
[2025-04-03 20:11] VITALS: BP 133/88; PULSE 98; RESP 16; TEMP 37; O2SAT 100
--- OUTSIDE RECORDS SUMMARY | 2025-04-03 20:12 | XMS_ITS | Data Portability ---
Author Organization [employer] [place] - MSE Address [address] [place] [address] Assessment Encounter Date Assessment Date Assessment LastModified [...] TSH, serum or plasma 2023 024 [email or web address] [employer] [facility], [address], [place], [address], 4 09:47:01 CMP, serum or plasma 2023 024 [email or web address] [employer] [facility], [address], [place], [address], 4 09:47:01 CBC w/ auto diff 2023 024 [email or web address] [employer] [facility], [address], [place], [address], 4 09:47:01 vitamin D, 25-hydroxy , total, serum 2023 024 [email or web address] [facility], [address], [place], [address], 4 09:47:01 vitamin B12 + folate, serum or blood 2023 024 [email or web address] [facility], [address], [place], [address], 4 09:47:01 HbA1c (hemoglobi n A1c), blood 2023 024 [email or web address] [facility], [address], [place], [address], 4 09:47:01 vitamin D, 25-hydroxy , total, serum 2023 024 [email or web address] ([place]), [address] [place], [address], 4 08:16:32 CBC w/ auto diff 2023 024 [email or web address] ([place]), [address] [place], [address], 4 08:16:30 CMP, serum or plasma 2023 024 [email or web address] ([place]), [address] [place], [address], 4 08:16:31 TSH + free T4, serum 2023 024 [email or web address] [address] [place], [address], 4 08:16:29 vitamin B12 + folate, serum or blood 2023 024 [facility] ([place]), [address] [place], [address], 4 08:16:31 HbA1c (hemoglobi n A1c), blood 2023 024 [facility] [address] [place], [address], 4 08:16:32 unlisted lab - sureswab(R ) advanced vaginitis plus, tma 2022 023 [employer] [facility], [address], [place], [address], 3 10:34:34 pap, LB 2022 023 [employer] [facility], [address], [place], [address], 3 11:47:37 Referral None recorded. Procedures None recorded. Surgeries None recorded. Imaging US, pelvis 2022 023 [facility], [address], [place], [address], 3 11:39:25 Medication Orders Myfembree 40 mg-1 [...] By Organization Details Last Modified Time 11/24/2023 [id number] body mass index: care instructions Not available [...] ve normal Not Available [facility] [address] [facility], [place], [address], 03/25/2023 12:13:11 03/24/20 23 03/25/2023 SURES WAB(R ) ADVAN DEJUAN VAGIN ITIS PLUS, TMA alisson species NOT DETECT ED not detect ed normal Not Available [facility] [address] [facility], [place], [address], 03/25/2023 12:13:11 03/24/2003/25/2023 SURES WAB(R ) ADVAN DEJUAN VAGIN ITIS PLUS, TMA alisson glabrata NOT DETECT ED not detect ed normal Qi da speci es C. albic ans, C. tropi calis , C. parap imchelle is, and/o r C. dubli niens is can be detec inge, but not diffe renti ated, in the Qi da spp. resul t. Not Available [facility] [address] [facility], [place], [address], 03/25/2023 12:13:11 03/24/20 23 03/25/2023 SURES WAB(R ) ADVAN DEJUAN VAGIN ITIS PLUS, TMA trichomonas vaginalis (TV), tma NOT DETECT ED not detect ed normal Not Available [facility] [address], [place], [address], 03/25/2023 12:13:11 03/24/20 23 03/25/2023 SURES WAB(R ) ADVAN DEJUAN VAGIN ITIS PLUS, TMA chlamydia trachomatis RNA, tma, urogenital NOT DETECT ED not detect ed normal Not Available [facility] [address] [facility], [place], [address], 03/25/2023 12:13:11 03/24/20 23 03/25/2023 SURES WAB(R ) ADVAN DEJUAN VAGIN ITIS PLUS, TMA neisseria gonorrhoeae RNA, tma, urogenital NOT DETECT ED not detect ed normal For addit ional infor paty thrasher refer to https ://ed ucati on.qu estdi [employer]. com/f aq/FA Q154 (This link is being provi ded for infor jeff alcala/ sin pepper purpo ses only. ) Not Available [facility] [address], [place], [place], [address], 03/25/2023 12:13:11 03/24/20 23 03/29/2023 IMAGE -GUID ED PAP W/AGE BASED SCR LEVI COLS comment This order for age-b ased cervi mallory cance r and STI scree david follo ws ACOG guide lines (PB 168, 140, FAQ07 1). See indiv idual assay s for perfo rming site locat ion. Not Available [facility] [address], [place], [place], [address], 03/29/2023 11:47:37 03/24/20 23 03/29/2023 IMAGE -GUID ED PAP W/AGE BASED SCR LEVI COLS clinical information: normal None given Not Available [facility] [address], [place], [place], [address], 03/29/2023 11:47:37 03/24/20 23 03/29/2023 IMAGE -GUID ED PAP W/AGE BASED SCR LEVI COLS LMP: normal NONE GIVEN Not Available [facility] [address], [place], [place], [address], 03/29/2023 11:47:37 03/24/20 23 03/29/2023 IMAGE -GUID ED PAP W/AGE BASED SCR LEVI COLS prev. Pap: normal NONE GIVEN Not Available [facility] [address], [place], [address], 03/29/2023 11:47:37 03/24/20 23 03/29/2023 IMAGE -GUID ED PAP W/AGE BASED SCR LEVI COLS prev. BX: normal NONE GIVEN Not Available [facility] [address] [facility], [place], [address], 03/29/2023 11:47:37 03/24/20 23 03/29/2023 IMAGE -GUID ED PAP W/AGE BASED SCR LEVI COLS source: normal Vagin a, Cervi x, Endoc ervix Not Available [facility] [address] [facility], [place], [address], 03/29/2023 11:47:37 03/24/20 23 03/29/2023 IMAGE -GUID ED PAP W/AGE BASED SCR LEVI COLS statement of adequacy: normal Satis facto ry for evalu ation . Endoc ervic al/tr ansfo rmati on zone compo nent prese nt. Age and/o r menst rual statu s not provi ded Not Available [facility] [address] [facility], [place], [address], 03/29/2023 11:47:37 03/24/20 23 03/29/2023 IMAGE -GUID ED PAP W/AGE BASED SCR LEVI COLS interpretati on/result: normal Cytol ogy Resul ts: Negat dave for intra epith elial lesio n or malig bria . Not Available [facility] [address] [facility], [place], [address], 03/29/2023 11:47:37 03/24/20 23 03/29/2023 IMAGE -GUID ED PAP W/AGE BASED SCR LEVI COLS comment: normal This Pap test has been evalu ated with compu ter sidney inge techn ology . Not Available [facility] [address], [place], [address], 03/29/2023 11:47:37 03/24/20 23 03/29/2023 IMAGE -GUID ED PAP W/AGE BASED SCR LEVI COLS cytotechnolo gist: normal SZS, CT( CP) CT Scree david locat ion: [facility] [place] [address] [place] [address] Not Available [facility] [address] [facility], [place], [address], 03/29/2023 11:47:37 03/24/20 23 03/29/2023 IMAGE -GUID [...] clini mallory infor matio n. Not Available [facility] [address] [facility], [place], [address], 03/29/2023 11:47:37 11/24/19 24 11/25/2023 TSH+F REE T4 TSH 2.520 uIU/m L 0.450- 4.500 normal Not Available [facility] ([facility]) [address] [facility], [place], [address], 11/25/2023 08:16:29 11/24/19 24 11/25/2023 TSH+F REE T4 T4,free(dire ct) 1.23 NG/dL 0.82-1 .77 normal Not Available [facility] ([facility]) [address] [facility], [place], [address], 11/25/2023 08:16:29 11/24/19 24 11/25/2023 CBC WITH DIFFE RENTI AL/PL ATELE T WBC 8.9 x10e3 /uL 3.4-10 .8 normal Not Available [facility] ([facility]) [address] [place], [address], 11/25/2023 08:16:30 11/24/19 24 11/25/2023 CBC WITH DIFFE RENTI AL/PL ATELE T RBC 4.63 x10e6 /uL 3.77-5 .28 normal Not Available [facility] ([facility]) [address] [place], [address], 11/25/2023 08:16:30 11/24/1911/25/2023 CBC WITH DIFFE RENTI AL/PL ATELE T hemoglobin 12.0 g/dL 11.1-1 5.9 normal Not Available [facility] ([facility]) [address] [place], [address], 11/25/2023 08:16:30 11/24/1911/25/2023 CBC WITH DIFFE RENTI AL/PL ATELE T hematocrit 38.5 % 34.0-4 6.6 normal Not Available [facility] ([facility]) [address] [place], [address], 11/25/2023 08:16:30 11/24/1911/25/2023 CBC WITH DIFFE RENTI AL/PL ATELE T MCV 83 fL 79-97 normal Not Available [facility] ([facility]) [address] [place], [address], 11/25/2023 08:16:30 11/24/1911/25/2023 CBC WITH DIFFE RENTI AL/PL ATELE T MCH 25.9 pg 26.6-3 3.0 below low normal Not Available [facility] ([facility]) [address] [place], [address], 11/25/2023 08:16:30 11/24/1911/25/2023 CBC WITH DIFFE RENTI AL/PL ATELE T MCHC 31.2 g/dL 31.5-3 5.7 below low normal Not Available [facility] ([facility]) [address] [facility], [place], [address], 11/25/2023 08:16:30 11/24/19 24 11/25/2023 CBC WITH DIFFE RENTI AL/PL ATELE T RDW 15.2 % 11.7-1 5.4 Not Available [facility] ([facility]) [address] [facility], [place], [address], 11/25/2023 08:16:30 11/24/1911/25/2023 CBC WITH DIFFE RENTI AL/PL ATELE T platelets 267 x10e3 /uL 150-45 0 normal Not Available [facility] ([facility]) [address] [place], [address], 11/25/2023 08:16:30 11/24/19 24 11/25/2023 CBC WITH DIFFE RENTI AL/PL ATELE T neutrophils 59 % not estab. normal Not Available [facility] ([facility]) [address] [place], [address], 11/25/2023 08:16:30 11/24/19 24 11/25/2023 CBC WITH DIFFE RENTI AL/PL ATELE T lymphs 30 % not estab. normal Not Available [facility] ([facility]) [address] [place], [address], 11/25/2023 08:16:30 11/24/19 24 11/25/2023 CBC WITH DIFFE RENTI AL/PL ATELE T monocytes 7 % not estab. normal Not Available [facility] ([facility]) [address] [place], [address], 11/25/2023 08:16:30 11/24/19 24 11/25/2023 CBC WITH DIFFE RENTI AL/PL ATELE T eos 2 % not estab. normal Not Available [facility] ([facility]) [address] [place], [address], 11/25/2023 08:16:30 11/24/19 24 11/25/2023 CBC WITH DIFFE RENTI AL/PL ATELE T basos 1 % not estab. normal Not Available [facility] ([facility]) [address] [facility], [place], [address], 11/25/2023 08:16:30 11/24/19 24 11/25/2023 CBC WITH DIFFE RENTI AL/PL ATELE T immature cells [employer]CH[employer]IC Not Available [facility] ([facility]) [address] [place], [address], 11/25/2023 08:16:30 11/24/19 24 11/25/2023 CBC WITH DIFFE RENTI AL/PL ATELE T neutrophils (absolute) 5.3 x10e3 /uL 1.4-7. 0 normal Not Available [facility] ([facility]) [address] [place], [address], 11/25/2023 08:16:30 11/24/19 24 11/25/2023 CBC WITH DIFFE RENTI AL/PL ATELE T lymphs (absolute) 2.7 x10e3 /uL 0.7-3. 1 normal Not Available [facility] ([facility]) [address] [place], [address], 11/25/2023 08:16:30 11/24/19 24 11/25/2023 CBC WITH DIFFE RENTI AL/PL ATELE T monocytes(ab solute) 0.6 x10e3 /uL 0.1-0. 9 normal Not Available [facility] ([facility]) [address] [place], [address], 11/25/2023 08:16:30 11/24/19 24 11/25/2023 CBC WITH DIFFE RENTI AL/PL ATELE T eos (absolute) 0.1 x10e3 /uL 0.0-0. 4 normal Not Available [facility] ([facility]) [address] [facility], [place], [address], 11/25/2023 08:16:30 11/24/19 24 11/25/2023 CBC WITH DIFFE RENTI AL/PL ATELE T baso (absolute) 0.1 x10e3 /uL 0.0-0. 2 normal Not Available [facility] ([facility]) [address] [facility], [place], [address], 11/25/2023 08:16:30 11/24/19 24 11/25/2023 CBC WITH DIFFE RENTI AL/PL ATELE T immature granulocytes 1 % not estab. Not Available [facility] ([facility]) [address] [facility], [place], [address], 11/25/2023 08:16:30 11/24/19 24 11/25/2023 CBC WITH DIFFE RENTI AL/PL ATELE T immature grans (abs) 0.1 x10e3 /uL 0.0-0. 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 METAB OLIC PANEL (14) glucose 91 mg/dL 70-99 normal Not Available [facility] ([facility]) [address] [place], [address], 11/25/2023 08:16:30 11/24/19 24 11/25/2023 COMP. METAB OLIC PANEL (14) BUN 12 mg/dL 6-20 normal Not Available [facility] ([facility]) [address] [place], [address], 11/25/2023 08:16:30 11/24/19 24 11/25/2023 COMP. METAB OLIC PANEL (14) creatinine 0.89 mg/dL 0.57-1 .00 normal Not Available [facility] ([facility]) [address] [place], [address], 11/25/2023 08:16:30 11/24/19 24 11/25/2023 COMP. METAB OLIC PANEL (14) eGFR 92 mL/mi n/1.7 3 >59 normal Not Available [facility] ([facility]) [address] [place], [address], 11/25/2023 08:16:30 11/24/19 24 11/25/2023 COMP. METAB OLIC PANEL (14) BUN/creatini ne ratio 13 9-23 normal Not Available [facility] ([facility]) [address] [facility] [place], [address], 11/25/2023 08:16:30 11/24/19 24 11/25/2023 COMP. METAB OLIC PANEL (14) sodium 139 mmol/ L 134-14 4 normal Not Available [facility] ([facility]) [address] [facility] [place], [address], 11/25/2023 08:16:30 11/24/19 24 11/25/2023 COMP. METAB OLIC PANEL (14) potassium 4.4 mmol/ L 3.5-5. 2 normal Not Available [facility] ([facility]) [address] [facility] [place], [address], 11/25/2023 08:16:30 11/24/19 24 11/25/2023 COMP. METAB OLIC PANEL (14) chloride 101 mmol/ L 96-106 normal Not Available [facility] ([facility]) [address] [place], [address], 11/25/2023 08:16:30 11/24/19 24 11/25/2023 COMP. METAB OLIC PANEL (14) carbon dioxide, total 24 mmol/ L 20-29 normal Not Available [facility] ([facility]) [address] [place], [address], 11/25/2023 08:16:30 11/24/19 24 11/25/2023 COMP. METAB OLIC PANEL (14) calcium 9.2 mg/dL 8.7-10 .2 normal Not Available [facility] ([facility]) [address] [place], [address], 11/25/2023 08:16:30 11/24/19 24 11/25/2023 COMP. METAB OLIC PANEL (14) protein, total 6.9 g/dL 6.0-8. 5 normal Not Available [facility] ([facility]) [address] [place], [address], 11/25/2023 08:16:30 11/24/19 24 11/25/2023 COMP. METAB OLIC PANEL (14) albumin 3.9 g/dL 4.0-5. 0 below low normal Not Available [facility] ([facility]) [address] [place], [address], 11/25/2023 08:16:30 11/24/19 24 11/25/2023 COMP. METAB OLIC PANEL (14) globulin, total 3.0 g/dL 1.5-4. 5 Not Available [facility] ([facility]) [address] [place], [address], 11/25/2023 08:16:30 11/24/19 24 11/25/2023 COMP. METAB OLIC PANEL (14) bilirubin, total 1.0 mg/dL 0.0-1. 2 normal Not Available [facility] ([facility]) [address] [facility], [place], [address], 11/25/2023 08:16:30 11/24/19 24 11/25/2023 COMP. METAB OLIC PANEL (14) alkaline phosphatase 115 IU/L 44-121 normal Not Available [facility] ([facility]) [address] [facility] [place], [address], 11/25/2023 08:16:30 11/24/19 24 11/25/2023 COMP. METAB OLIC PANEL (14) AST (SGOT) 36 IU/L 0-40 normal Not Available [facility] ([facility]) [address] [place], [address], 11/25/2023 08:16:30 11/24/19 24 11/25/2023 COMP. METAB OLIC PANEL (14) ALT (SGPT) 47 IU/L 0-32 above high normal Not Available [facility] ([facility]) [address] [facility], [place], [address], 11/25/2023 08:16:30 11/24/19 24 11/25/2023 VITAM IN B12 AND FOLAT E vitamin B12 1107 pg/mL 232-12 45 normal Not Available [facility] ([facility]) [address] [place], [address], 11/25/2023 08:16:31 11/24/19 24 11/25/2023 VITAM IN B12 AND FOLAT E folate (folic acid), serum 10.1 NG/mL >3.0 normal A serum folat e bianca ntrat ion of less than 3.1 ng/mL is consi dered to repre sent clini mallory defic iency . Not Available [facility] ([facility]) [address] [facility], [place], [address], 11/25/2023 08:16:31 11/24/19 24 11/25/2023 HEMOG LOBIN A1C hemoglobin A1C 5.3 % 4.8-5. 6 normal Predi abete s: 5.7 - 6.4 Diabe светлана: >6.4 Glyce claudia contr ol for adult s with diabe светлана: <7.0 Not Available [facility] ([facility]) [address] [facility], [place], [address], 11/25/2023 08:16:31 11/24/19 24 11/25/2023 VITAM IN [...] um and D. Chencho red [place]: [employer] . 2. Toya bridges [place], Lauri valdivia [place], Wil off-F errar i PONCE, et al. Evalu ation , treat ment, and preve ntion of vitam in D defic iency : an Endoc rine Socie ty clini mallory pract ice guide line. JCEM. 2010; 96(7) :1911 -30. Not Available [facility] ([facility]) [address] [facility], [place], [address], 11/25/2023 08:16:32 04/06/20 23 04/06/2023 , adrien olson No observ ation record ed. [email or web address] [facility] [address], [address], 04/06/2023 13:04:18 Result Notes None recorded. Problems Name Problem SNOMED Code Status Onset Date Resolution Date Notes Provider Name and Address Organization Details Recorded Time Pelvic and perineal pain 010339410 Active 2022 Tawana Larson, [employer] ENGINE[employer] [address] [place], [address], [email or web address] 3 10:52:33 Acute pelvic inflammatory disease 847207652 Active 2022 Tawana Larson, JUNIOR NETWORK ENGINE[employer] [address] [place] [address], [address], [email or web address] 3 11:01:38 Endometriosis (clinical) 592367045 Active 2022 Tawana Larson, JUNIOR NETWORK ENGINEER [address] [place] [address], [address], [employer] 3 12:10:41 Fatigue 89828323 Active 2023 Tawana Larson, JUNIOR NETWORK ENGINEER [address] [place], [address], [email or web address] 4 09:50:48 Hot sweats 869601021 Active 2023 Tawana Larson, JUNIOR NETWORK ENGINEER [address] [place] [address], [address], [employer] 4 09:51:49 Problem Notes None recorded. Procedures Surgical History Date Name Laterality Status Provider Name and Address Organization Details Recorded Time 3 Date of Last Pap Smear completed [employer] 04/06/2023 11:29:21 extraction of wisdom tooth completed [employer] 04/06/2023 11:30:12 Colonoscopy completed [employer] 04/06/2023 11:30:22 Imaging Results None recorded. [...] Updated DateTime 4 167.64 cm 47.5 kg/m2 611799. 16 g 83 /min 98 % 122/78 mm[Hg] Juliet Weaver [employer] 4 09:39:12 Date Recorded Body height Body mass index (BMI) Body weight Systolic And Diastolic Provider Name and Address Organization Details Last Updated DateTime 03/24/2023 167.64 cm 47.1 kg/m2 544804.25 g 124/70 mm[Hg] BRADY PENG [employer] 03/24/2023 10:41:11 Date Recorded Body height Body mass index (BMI) Body weight Systolic And Diastolic Provider Name and Address Organization Details Last Updated DateTime 04/06/2023 167.64 cm 46.5 kg/m2 844346.04 g 120/78 mm[Hg] Juliet Weaver [employer] 04/06/2023 11:28:23 Social History Question Answer Notes LastModified by Organizat ion Details LastModified Time Tobacco Smoking Status Never Smoker BRADY oneil [employer]. 03/24/2023 10:35:02 Do You Have An Advance [...] Do You Have A Medical Power Of Used Car Lot Attendant? Yes Information not available 03/24/2023 What Was The Date Of Your Most Recent Tobacco Screening? 11/24/2023 [email or web address] Information not available 11/22/2023 Do You Have [...] Has Tobacco Cessation Counseling Been Provided? No [email or web address] Information not available 11/24/2023 Do You Have Difficulty Walking Or Climbing Stairs? No Information not available 03/24/2023 Sex: Female Functional Status Question Answer Note LastModified by Organizat ion Details LastModified Time Do you use any illicit or recreational drugs? No Information not available 03/24/2023 Do you or have you ever used any other forms of tobacco or nicotine? No [email or web address] Information not available 11/24/2023 What is your level of alcohol consumption? None [email or web address] Information not available 11/24/2023 Are you currently [...] Other N Hyperthyroidism N Blood Transfusion N Drug/Latex Allergies/Reactions N Breast Cancer N Emergency room visit since last appointm ent. N Dermatologic Disorders N Lung Disease N Hypothyroidism N Defects or Inherited Disease N Breast Problem N Gestational Diabetes N Hematologic disorders N Anesthesia Complications N History of STI N Deep Vein Thrombosis N Polycystic ovary syndrome N Anxiety Disorder N Autoimmune disease N Vision or Eye Problems N Arthritis N Infertility N Polyps N Mental Disorder N Congenital Anomalies N Acid Reflux (GERD) N History of abnormal pap N Cancer N Stroke N Neurologic/Epilepsy N Endometriosis N High Cholesterol N Organ Transplant N Psychiatric/Mental Health Condition N Dialysis N Schizophrenia N Headaches N Fibromyalgia N Kidney Disease N Heart Problems N Hospitalizations N Kidney or Bladder Problems N Thyroid Problems N GI Problems N Acne N [...] Hib, unspecified formulation 9 completed Juliet oneil, [facility] [employer] [facility]. 04/06/2023 11:12:16 Hib, unspecified formulation 9 completed Juliet Owen null, [employer] 04/06/2023 11:12:16 Hib, unspecified formulation 8 completed Juliet Owen null, [employer] 04/06/2023 11:12:16 Hib, unspecified formulation 9 completed Juliet Owen null, [employer] 04/06/2023 11:12:16 meningococcal ACWY, unspecified formulation 6 completed Juliet Owen null, [employer] 04/06/2023 11:12:16 MMR 0 completed Juliet Owen null, [employer] 04/06/2023 11:12:16 MMR 2 completed Juliet Owen null, [employer] 04/06/2023 11:12:16 MMR 9 completed Juliet Owen null, [employer] 04/06/2023 11:12:16 COVID-19 vaccine, vector-nr, rS-Ad26, PF, 0.5 mL 2 completed Juliet Owen null, [employer] 04/06/2023 11:12:16 Tdap 4 completed Juliet Owen null, [employer] 04/06/2023 11:12:16 varicella 9 completed Juliet Owen null, [employer] 04/06/2023 11:12:16 varicella 9 completed Juliet Owen null, [employer] 04/06/2023 11:12:16 Hep B, unspecified formulation 9 completed Juliet Owen null, [employer] 04/06/2023 11:12:16 Hep B, unspecified formulation 8 completed Juliet Owen null, [employer] 04/06/2023 11:12:16 Hep B, unspecified formulation 8 completed Juliet Owen null, [employer] 04/06/2023 11:12:16 polio, unspecified formulation 9 completed Juliet Owen null, [employer] 04/06/2023 11:12:16 polio, unspecified formulation 0 completed Juliet Owen null, [employer] 04/06/2023 11:12:16 polio, unspecified formulation 2 completed Juliet Owen null, [employer] 04/06/2023 11:12:16 polio, unspecified formulation 8 completed Juliet Owen null, [employer] 04/06/2023 11:12:16 DTaP, unspecified formulation 9 completed Juliet Owen null, [employer] 04/06/2023 11:12:17 DTaP, unspecified formulation 0 completed Juliet Owen null, [employer] 04/06/2023 11:12:17 DTaP, unspecified formulation 9 completed Juliet Owen null, [employer] 04/06/2023 11:12:17 DTaP, unspecified formulation 2 completed Juliet Owen null, [employer] 04/06/2023 11:12:17 DTaP, unspecified formulation 8 completed Juliet Owen null, [employer] 04/06/2023 11:12:17 Influenza, split virus, quadrivalent, PF 8 completed Juliet Owen null, [employer] 04/06/2023 11:12:17 Pneumococcal Conjugate, unspecified formulation 0 completed Juliet Owen null, [employer] 04/06/2023 11:12:17 Past Encounters Encounter ID Performer Location Encounter Start Date Encounter Closed Date Diagnosis/Indication Diagnosis SNOMED-CT Code Diagnosis ICD10 Code Diagnosis IMO Codes Diagnosis Note [id number] Tawana Walthall, [facility] [address] [address] 03/24/2023 10:27:45 03/24/2023 11:15:30 Pelvic and perineal pain 873734720 R10.2 Screening for malignant neoplasm of cervix 335355318 Z12.4 Surveillan ce of intrauterine device contraception done 2906048204 91844 Z30.431 Acute pelv ic inflammatory disease 004684611 N73.9 Gynecologi c examination 04920788 Z01.851 [id number] Tawana Larson [facility] [address] [address] 04/06/2023 11:07:57 04/06/2023 13:11:43 Endometriosis (clinical) 135678665 N80.9 [id number] Tawana Larson [facility] [address] [address] 11/24/2023 09:33:56 11/24/2023 10:20:19 Fatigue 91910133 R53.83 Hot sweats 080833162 R61 Body mass index 40+ - severely obese 331113920 Z68.42 Health Concerns Section Related Observation LastModified by Organization Detai ls LastModified Time None Recorded Concern Status LastModified by Organization Details LastModified Time None Recorded Advance Directives Directive Y: Payers Insurance Date Sequence Insurance Name Policy Number Policy Coello Covered Member ID Coello Member ID Guarantor Name 03/24/2023 1 *SELF PAY* Alyse Liu 11/21/2023 1 [facility] Augustine Liu [id number] Sunshine Liu Notes Date Note Type Note Provider Name and Address Organization Details Recorded Time 03/24/2023 text/html Annual GYNReport ed by PatientROS as noted in the HPI 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 She is concerned for pelvic pain [...] than laying down. Tawana Larson APRN [address] [place], [address], [employer] 03/28/2023 08:44:12 04/06/2023 text/html ROS as [...] if no improvement. Tawana Larson APRN [address] [place], [address], [employer], [employer] [place]. 04/06/2023 12:59:35 11/24/2023 text/html ROS as noted [...] regarding her sx. Tawana Larson APRN [address] [place], [address], [employer], [employer] [place]. 11/24/2023 10:05:38 OBGyn Episode No OBEpisode recorded.
--- OUTSIDE RECORDS SUMMARY | 2025-04-03 20:12 | XMS_ITS | Data Portability ---
Author Organization [facility] Address [address] [place] [address] Assessment Encounter Date Assessment Date Assessment LastModified by Organization Details LastModified Time 02/16/2024 02/16/2024 28 yo here for acute on chronic pelvic pain Not available 02/21/2024 06:33:17 Plan of Treatment Reminders Order Date Submit Date Provider Last Modified By Organization Details Last Modified Time Details Appointments None recorded. Lab culture, urine 2023 BRIST[facility], [address], [address], [place], [address], 22:07:03 test, urine 2023 024 [facility] Case Supervisor, [address] [place] [address] , [place], [address], 17:18:51 Referral None recorded. Procedures None recorded. Surgeries None recorded. Imaging US, transvagina l 2023 024 [email or web address] [facility], [address] [place] [address] , [place], [address], 15:57:37 Medication Orders Macrobid 100 mg capsule 2023 024 [id number], [address] , [place], [place], [id number], 14:35:47 Diflucan 150 mg tablet 2023 024 [facility], [address] , [place], [place], [id number], 14:36:12 Patient TargetsNo targets recorded. Patient Instructions Encounter Date Encounter Id Patient Instructions Last Modified By Organization Details Last Modified Time 02/16/2024 [id number] painful urinatio n (dysuria): care instructions Not available 02/16/2024 14:35:41 body mass index: care instructions Not available 02/21/2024 06:36:34 learning about healthy weight Not available 02/21/2024 06:36:34 I have seen and examined the patient and agree with the plan of care. - Dr. Radha ALFONSO Addendum: Sunshine is a 28 yo G0 with acute on chronic pelvic pain. She declines pelvic examination today. US is overall WNL. She reports she has been evaluated by multiple GYNs in the past. She has been offered various hormonal therapies for suspected endometriosis, including Myfembree. She declines these. She denies any bowel involvement. She does report that she feels pain with full bladder as well as pain with intercourse. Discussed various options including hormonal therapies, Myfembree, Orilissa, surgical therapies including diagnostic laparoscopy, and also discussed further assessment including KCl challenge in case of interstitial cystitis component. Discussed foods to eliminate from diet in case of IC. She will consider. In the meantime, advised starting ATB in case of UTI, and will send culture. [email or web address] Not available 02/21/2024 06:36:22 Reason for Referral None Reported. Results Created Date Observation Date Name Description Value Unit Range Abnormal Flag Note LastModifiedBy Organization Detail LastModifiedTime 02/16/2002/17/2024 URINE CULTU ARSLAN FLOOD urine culture, routine Final report Not Available [facility] [address] [facility], [place], [address], 02/17/2024 22:07:03 02/16/20 24 02/17/2024 URINE CULTU ARSLAN FLOOD result 1 COMMEN T Mixed uroge nital braden Less than 10,00 0 colon ies/m L Not Available [facility] [address] [facility], [place], [address], 02/17/2024 22:07:03 02/16/20 24 02/16/2024 pregn richard test, urine HCG negati ve Not Available [facility] [address] [place] [address] , [place], [address], 02/16/2024 14:23:44 02/16/20 24 02/16/2024 US, trans vagin al No observ ation record ed. [email or web address] Case Supervisor [address] [place] [address] , [place], [address], 02/21/2024 09:54:29 02/16/20 24 US, trans vagin al No observ ation record ed. [address] Case Supervisor [address] [place] [address] , [place], [address], 02/21/2024 09:54:29 02/27/20 24 02/16/2024 US, trans vagin al No observ ation record ed. [facility] Supervisor [address] [place] [address] , [place], [address], 02/27/2024 16:30:54 Result Notes None recorded. Problems Name Problem SNOMED Code Status Onset Date Resolution Date Notes Provider Name and Address Organization Details Recorded Time Narcolepsy 00753270 Active 2023 Mari oneil, [place] - [facility] 4 13:33:19 Attention deficit hyperactivity disorder 661193434 Active 2023 Mari Yee null, [place] - [facility] 13:33:42 Pain in pelvis 52589812 Active 2023 Deepali Lopez MD [facility] [address], [place], [address] , [place] - [facility] 09:48:59 Problem Notes None recorded. Procedures Surgical History Date Name Laterality Status Provider Name and Address Organization Details Recorded Time 4 extraction of wisdom tooth completed Mari HARRY - [facility] 02/16/2024 13:41:38 0 colonoscopy completed Mari HARRY - [facility] 02/16/2024 13:41:22 Imaging Results None recorded. Procedure Notes None recorded. Medical Equipment None Reported. Allergies Allergen ID Allergen Name Allergen Category Reaction Reaction Severity Criticality Documentation Date Start Date Code Code System Note Provider Name and Address Organization Details Recorded Time 007195 Suprax medicatio n Not available Not available Not available 02/16/2024 43387 9 RxNorm Mari oneil [place] [facility] 13:31:11 Medications Name Sig Start Date Stop Date Status Note LastModified by Organization Details LastModified Time doxycycline hyclate 100 mg capsule TAKE 1 CAPSULE BY MOUTH DAILY WITH FOOD AND FULL GLASS OF WATER. DO NOT LIE DOWN 1 HOUR AFTER TAKING 02/15 completed Not Available Not Available Not Available fluconazole 150 mg tablet Take 1 tablet by oral route. active Not Available Not Available No t Available metronidazo le 500 mg tablet 02/15 completed Not Available Not Available Not Available triamcinolo ne acetonide 0.1 % topical cream active Not Available Not Available Not Available rizatriptan 10 mg disintegrat ing tablet TAKE 1 TABLETS NEEDED FOR MIGRAIN active Not Available Not Available No t Available furosemide 20 mg tablet TAKE 1 TABLET BY MOUTH EVERY DAY FOR 7 DAYS DIRECTED 02/15 completed Not Available Not Available Not Available ondansetron 4 mg disintegrat ing tablet DISSOLVE 1 TABLET ON THE TONGUE THREE TIMES DAILY FOR 7 DAYS NEEDED 02/15 completed Not Available Not Available Not Available loratadine 10 mg tablet active Not Available Not Available Not Available clindamycin phosphate 1 % topical solution active Not Available Not Available Not Available atomoxetine 40 mg capsule TAKE 1 CAPSULE BY MOUTH EVERY DAY FOR 5 DAYS THEN INCREASE TO 1 CAPSULE BY MOUTH TWICE DAILY DIRECTED active Not Available Not Available No t Available cyclobenzap rine 5 mg tablet TAKE 1 TABLET BY MOUTH THREE TIMES DAILY NEEDED active Not Available Not Available No t Available nitrofurant oin monohydrate /macrocryst als 100 mg capsule TAKE 1 CAPSULE BY MOUTH EVERY 12 HOURS FOR 7 DAYS active Not Available Not Available No t Available desvenlafax ine succinate ER 50 mg tablet,exte nded release 24 hr TAKE 1 TABLET BY MOUTH EVERY DAY DIRECTED active Not Available Not Available No t Available Zepbound 5 mg/0.5 mL subcutaneou s pen injector ADMINISTE R 5 MG UNDER THE SKIN EVERY WEEK DIRECTED active Not Available Not Available No t Available Zepbound 2.5 mg/0.5 mL subcutaneou s pen injector ADMINISTE R 2.5 MG UNDER THE SKIN EVERY WEEK DIRECTED 02/15 completed Not Available Not Available Not Available Vitals Date Recorded Body height Body mass index (BMI) Body weight Pain severity - 0-10 verbal numeric rating [Score] - Reported Systolic And Diastolic Provider Name and Address Organization Details Last Updated DateTime 02/16/2024 177.8 cm 39.6 kg/m2 466098.4 9 g 4 132/82 mm[Hg] Mariaddy Yee [place] - [facility] 13:43:04 Social History Question Answer Notes LastModified by [employer] Details LastModified Time Tobacco Smoking Status Never Smoker Mariaddy oneil, [place] - [facility] 02/16/2024 13:39:35 What Is Your Level Of Caffeine Consumption? Occasional [email or web address] Information not available 02/16/2024 What Was The Date Of Your Most Recent Tobacco Screening? 02/16/2024 [email or web address] Information not available 02/16/2024 What Is Your Relationship Status? Domestic Partner [email or web address] Information not available 02/16/2024 Are You Sexually Active? Yes [email or web address] Information not available 02/16/2024 Has Tobacco Cessation Counseling Been Provided? No [email or web address] Information not available 02/16/2024 What Contraceptive Method Was Reported At Start Of This Visit? IUD Unspecified [email or web address] Information not available 02/16/2024 Was Counseling Provided To Achieve ? No [email or web address] Information not available 02/16/2024 Do You Have Any Future Plans To Get ? Yes, I Want To Become Information not available 02/16/2024 Sex: Female Functional Status Question Answer Note LastModified by Organizat ion Details LastModified Time Do you use any illicit or recreational drugs? No [email or web address] Information not available 02/16/2024 Do you or have you ever used any other forms of tobacco or nicotine? No [email or web address] Information not available 02/16/2024 What is your level of alcohol consumption? None [email or web address] Information not available 02/16/2024 What is your status? Not [email or web address] Information no t available 02/16/2024 Mental Status None recorded. Family History Relationship Description Onset Age of this Age Resolved Age Notes LastModified by Organization Details LastModified Time Mother Cyst of ovary [email or web address] Not available 11/2023 13:37:08 Mother Endometriosi s (clinical) [email or web address] Not available 1 04/17/2023 13:37:54 Mother Fertility problem [email or web address] Not available 11/2023 13:38:10 Mother Type 2 diabetes mellitus [email or web address] Not available 11/2023 13:39:07 Maternal Aunt Cyst of ovary [email or web address] Not available 11/2023 13:37:08 Maternal Aunt Endometriosi s (clinical) [email or web address] Not available 04/17/2023 13:37:54 Maternal Aunt Fertility problem Not available 11/2023 13:38:10 Unspecified Relation Cyst of uterus Cousin Not available 11/2023 13:37:40 Paternal Grandmother Type 1 diabetes mellitus [email or web address] Not available 11/2023 13:38:52 Medical History No medical history recorded. Gynecological History Statement/Question Response Abnormal Pap N Date of LMP Sexually Active? Y HPV Vaccine Y Current Control Method IUD LMP Unknown Obstetrics History GPAL:G 0 P 0 0 0 0 Immunizations Vaccine Type Date Status Note Provider Nam e and Address Organization Details Recorded Time Hib, unspecified formulation 9 completed Mari Yee null, [place] - [facility] 02/16/2024 13:30:36 Hib, unspecified formulation 9 completed [place] Y[place] [facility] 02/16/2024 13:30:36 Hib, unspecified formulation 8 completed [place] Y[place] [facility] 02/16/2024 13:30:36 Hib, unspecified formulation 9 completed [place] Y[place] [facility] 02/16/2024 13:30:36 meningococcal ACWY, unspecified formulation 6 completed [place] Y[place] [facility] 02/16/2024 13:30:36 MMR 0 completed [place] Y[place] [facility] 02/16/2024 13:30:36 MMR 2 completed [place] Y[place] [facility] 02/16/2024 13:30:36 MMR 9 completed [place] Y[place] [facility] 02/16/2024 13:30:36 COVID-19 vaccine, vector-nr, [id number], PF, 0.5 mL 2 completed [place] Y[place] [facility] 02/16/2024 13:30:36 Tdap 4 completed [place] [facility] 02/16/2024 13:30:36 varicella 9 completed [place] [facility] 02/16/2024 13:30:36 varicella 9 completed [place] [facility] 02/16/2024 13:30:36 Hep B, unspecified formulation 9 completed [place] [facility] 02/16/2024 13:30:36 Hep B, unspecified formulation 8 completed [place] [facility] 02/16/2024 13:30:36 Hep B, unspecified formulation 8 completed [place] [facility] 02/16/2024 13:30:36 polio, unspecified formulation 9 completed [place] [facility] 02/16/2024 13:30:36 polio, unspecified formulation 0 completed [place] [facility] 02/16/2024 13:30:36 polio, unspecified formulation 2 completed [place] [facility] 02/16/2024 13:30:36 polio, unspecified formulation 8 completed [place] [facility] 02/16/2024 13:30:36 DTaP, unspecified formulation 9 completed [place] [facility] 02/16/2024 13:30:36 DTaP, unspecified formulation 0 completed [place] [facility] 02/16/2024 13:30:36 DTaP, unspecified formulation 9 completed [place] [facility] 02/16/2024 13:30:36 DTaP, unspecified formulation 2 completed [place] [facility] 02/16/2024 13:30:36 DTaP, unspecified formulation 8 completed [place] [facility] 02/16/2024 13:30:36 Influenza, split virus, quadrivalent, PF 8 completed Mari Y[place] [facility] 02/16/2024 13:30:36 Pneumococcal Conjugate, unspecified formulation 0 completed Mari Y[place] [facility] 02/16/2024 13:30:36 Past Encounters Encounter ID Performer Location Encounter Start Date Encounter Closed Date Diagnosis/Indication Diagnosis SNOMED-CT Code Diagnosis ICD10 Code Diagnosis IMO Codes Diagnosis Note [id number] MD Haleigh Pillai [facility] [address] [facility] [address] [id number] 02/16/2024 12:39:13 02/16/2024 14:40:35 Pain in pelvis 22723785 R10.2 Dysuria 22491020 R30.0 Body mass index 30+ - obesity 492923360 Z68.39 Health Concerns Section Related Observation LastModified by Organization Detai ls LastModified Time None Recorded Concern Status LastModified by Organization Details LastModified Time None Recorded Advance Directives Directive None Recorded Payers Insurance Date Sequence Insurance Name Policy Number Policy Coello Covered Member ID Coello Member ID Guarantor Name 02/21/2024 1 [place]) [id number] Sunshine Liu [id number] Sunshine Liu Notes Date Note Type Note Provider Name and Address Organization Details Recorded Time 02/16/2024 text/html ROS as noted in the HPI Patient is a new patient presenting for evaluation of pelvic pain. Patient reports that the pain is in her pelvis and wraps around to her back that she states feels internal starting last Monday. Last sexual intercourse was February 08. Denies vulvar pain. States that it does not feel like period cramps. Patient reports discomfort with sexual intercourse. Patient reports that the pain feels like a combination of dull, sharp and pressure. Patient reports that discomfort is made worse by certain positions (i.e. sitting or lying down for prolonged periods of time), deep breathing, and sexual intercourse. Patient reports that stretching and changing positions helps - patient has tried hot showers, baths, Tylenol, ibuprofen without significant relief of pain. Patient reports that sometimes she has intense pain accompanied by sensation that she has to urinate and states that urination relieves the pain. Patient reports that pain is approximately 4/10. Patient has not lost control over her bowels or her bladder. Nothing like this has ever happened to her before. Patient reports that the pain does not radiate down her legs or up her back, but does have pins and needles occasionally that her chiropractor says is related to sciatica. Patient reports that she has previously had an IUD for 5 years which she had removed 2 years and replaced with 8 year Liletta in February 2022. She has not previously had any problems with IUD. Patient also has past history of IBS and non alcoholic fatty liver for which she takes tirzepatide, atomoxetine for ADHD, desvenlafaxine for depression and rizatriptan for migraines. No medication was started recently aside from Zepbound. Patient denies new herbal or OTC medications. 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 Patient denies recent bending/lifting/twis ting/straining movements. Patient denies eating or drinking anything out of the ordinary. Patient has not traveled anywhere recently. Patient reports that she has a rash underneath her left armpit and was given steroid cream for a ring rolling machine operator approximately 1 month ago; she states that it has been coming and going since then. Patient denies recent illnesses or sick contacts. Patient denies new soaps, lotions, detergents. Patient reports positive maternal family history of ovarian cysts, endometriosis and difficulty conceiving (her mother had 7 miscarriages). Patient had an ultrasound several months ago because she was having some pain - there was a cyst found on one of her ovaries but it was too small to be surgically removed. Patient denies fevers, chills, unintentional weight loss/gain, chest pain, palpitations, shortness of breath, coughing, vomiting, diarrhea, dizziness, weakness, hematuria, dysuria, vaginal bleeding, discharge. Patient reports constipation and nausea secondary to Zepbound, back and neck discomfort, headaches and occasional numbness. Deepali Lopez MD [facility] [address], [place], [address], [place] - [facility] 02/21/2024 06:36:52 OBGyn Episode No OBEpisode recorded.
--- NOTE | 2025-04-03 20:16 | HMH.EDGENADL ---
Discharge Plan Disposition Patient Disposition: Home, Self-Care Condition: Good Prescriptions Prescriptions: No Action amoxicillin-pot clavulanate 875-125 mg tablet 1 tab PO BID 7 Days Qty: 14 0RF amoxicillin-pot clavulanate 875-125 mg tablet 1 tab PO BID 7 Days Qty: 14 0RF amoxicillin-pot clavulanate 875-125 mg tablet 1 tab PO BID 7 Days Qty: 14 0RF Referrals Follow up/Referrals: Moises Stearns DO [Primary Care Provider, [facility]] - See instructions Activity Restrictions/Add. Instructions Additional Instructions/Restrictions: Please return if you develop any new or worsening symptoms. Clinical Impressions Clinical Impression: Accidental overdose of gabapentin Instructions Patient Instructions: Subjective Opioid Withdrawal Scale (SOWS) Print Language Print Language: Estonian Discharge ED Provider: Romero Dominique Adult HPI General Chief complaint: Overdose Stated complaint: took to many Gabapentin,called Poison Control Time Seen by Provider: 04/03/25 20:00 Mode of Arrival: Ambulatory Source of Information: Patient Description of Symptoms (Recalled from ER Triage Doc. by RN): PT presents to the ED for possible ingestion of 5.4 gm of Gabapentin. PT denies SI. History of Present Illness HPI narrative: This is a 29-year-old female patient, with past medical history of anxiety on atomoxetine, who is presenting to the emergency department a day for evaluation of accidental overdose on gabapentin. The patient states that she was recently diagnosed with sciatica and was prescribed 300 mg capsules of gabapentin. She tells me that every night she has numerous vitamins and pills that she takes before bedtime. She states that she gathers these pills and places them in an orange prescription pill bottle. This evening before bedtime she grabbed the wrong pill bottle and took 18 capsules of 300 mg gabapentin. She states that she felt the texture of the pills were all the same so she looked at the bottles label and found that it was the gabapentin bottle and there were only 2 pills remaining. The ingestion took place at around 7:20 PM. The patient denies suicidal and homicidal ideations. She denies auditory hallucinations or visual hallucinations. At this time she is not experiencing any nausea or vomiting. No abdominal pain. She is also not experiencing any confusion or mental status changes. She did call poison control prior to arrival and they instructed her to come to the emergency department immediately and stated that if she arrived before 9 PM that she should be treated with charcoal. Related Data Previous Rx's ?Medication ?Instructions ?Recorded amoxicillin 875 mg-potassium 1 tab PO BID 7 days #14 tabs 03/14/25 clavulanate 125 mg tablet amoxicillin 875 mg-potassium 1 tab PO BID 7 days #14 tabs 03/14/25 clavulanate 125 mg tablet amoxicillin 875 mg-potassium 1 tab PO BID 7 days #14 tabs 03/14/25 clavulanate 125 mg tablet Allergies Allergy/AdvReac Type Severity Reaction Status Date / Time cefixime (From Suprax) Allergy Other Verified 03/13/25 23:59 [facility] Disclaimer: The information contained in this section may have been updated after the patient was seen, as this information can be updated by other users. Social History (Updated 03/14/25 @ 01:37 by Raffy Jackson MD) Smoking Status: Never smoker alcohol intake: never current occupational status: employed Travel in the last 8 weeks?: None Have you lived/traveled outside [place] in past 30 days?: No Contact w/someone who lives/traveled outside [place] past 30 days?: No Exposure to someone with infectious disease in past 14 days?: No Do you have a fever (greater than 100.4 F or 38 C)?: No Have you tested positive for COVID-19?: No Exposed to someone with COVID-19 in past 14 days?: No Do you have a sore throat?: No Do you have a cough?: No Do you have any weakness?: No Do you have any diarrhea?: No Are you experiencing any unusual bleeding?: No Do you have any muscle aches/pain?: No Do you have any abdominal pain?: No Are you experiencing loss of taste or smell?: No ROS Obtained: Yes Systems reviewed as appropriate & no additional complaints except as documented Physical Exam General General appearance: other (See MDM) Respiratory Respiratory exam: Present other (See MDM) Cardiovascular Cardiovascular exam: Present other (See MDM) Neurological Exam Neurological exam: Present other (See MDM) Medical Decision Making Medical Records Medical records reviewed: Yes I reviewed the patient's medical records. Screening: Per USPSTF and CDC recommendations, given the prevalence of disease in our region, it is our hospital?s policy to screen for HIV and viral Hepatitis for all patients aged 18 and over and those with ongoing risk factors. Sohan Inquiry Pt receiving controlled substance: No Sohan was queried for this patient: No Vital Signs: 04/03/25 20:04 04/03/25 20:11 04/03/25 20:40 Temperature 98.6 F 98.6 F Temperature Source Oral Pulse Rate 98 H 95 H Pulse Rate [Left] 98 H Respiratory Rate 16 16 Blood Pressure 133/88 150/91 H Blood Pressure [Right Arm] 133/88 Blood Pressure Mean 110 Blood Pressure Mean [Right Arm] 103 02 Sat by Pulse Oximetry 100 100 100 Oxygen Delivery Method Room Air Room Air 04/03/25 22:55 04/03/25 23:53 04/04/25 00:40 Temperature 98.6 F Temperature Source Pulse Rate 87 90 86 Pulse Rate [Left] Respiratory Rate 18 16 18 Blood Pressure 129/80 126/70 143/67 H Blood Pressure [Right Arm] Blood Pressure Mean Blood Pressure Mean [Right Arm] 02 Sat by Pulse Oximetry 97 96 99 Oxygen Delivery Method Room Air Room Air Room Air 04/04/25 00:42 Temperature 98.6 F Temperature Source Pulse Rate 86 Pulse Rate [Left] Respiratory Rate 18 Blood Pressure 143/67 H Blood Pressure [Right Arm] Blood Pressure Mean Blood Pressure Mean [Right Arm] 02 Sat by Pulse Oximetry Oxygen Delivery Method Room Air Orders (Tests/Meds): ED MEDICATIONS Discontinued Medications Generic Name Dose Route Start Last Admin Trade Name Freq PRN Reason Stop Dose Admin Charcoal/Sorbitol 50 gm 04/03/25 20:04 04/03/25 20:05 Charcoal Activated 50gm (240ml) Tube PO 04/03/25 20:05 50 gm ONCE ONE Administration Medical Decision Narrative: This is a 29-year-old female patient who is presenting to the emergency department today for evaluation of accidental ingestion of 5.4 g of gabapentin. Who please see HPI portion of this note for further details. The patient is asymptomatic at the time of arrival to the emergency department. We touch base with voice control and they recommended proceeding with administration of activated charcoal. I specifically asked post control if she would benefit from EKGs, hematologic labs, or any other workup and they stated that she does not need any of these studies. On initial evaluation of the patient they were resting comfortably in no acute distress and nontoxic in appearance. They are hemodynamically stable, saturating well room air, and are neurologically intact. On physical examination her heart lungs clear to station bilaterally. She is appropriately alert and oriented with a GCS of 15. Abdomen is soft and nontender to palpation. She appears to have good insight and makes light of the situation this evening. She adamantly denies intent for suicide. Gabapentin ingestion, [employer] suppression, respiratory pression, among others While there is no recommendation to obtain hematologic labs, the patient is at high risk for [employer] depression and is therefore at risk for respiratory depression. Therefore we have prophylactically obtained intravenous access in the event that she does necessitate airway management. Additionally, I have confirmed CODE STATUS with the patient and she states that she is full code at this time and would like to be intubated if necessary The patient was placed in observation status at 8:20 PM. Medical necessity for observational status is intoxication observation. The patient was provided serial reevaluations and cardiac monitoring while awaiting results. The patient remained hemodynamically stable and saturating well on room air throughout the duration of her ED observation stay. She did become very sleepy but was easily arousable and remained alert and orient x 4. No evidence of respiratory pression. By poison control recommendations, she was clear at the 4-hour landen from ingestion, and we have observed her for 5.5 hours from ingestion. Because of this I feel patient is stable to be discharged home with follow-up with her PCP versus feel the patient requires admission. Total time in observation 4.5 hours. Patient was ultimately discharged in stable condition with her boyfriend who will drive her home this evening. Critical Care Critical Care Time Critical Care Time: No
[2025-04-03 20:40] VITALS: BP 150/91; PULSE 95; O2SAT 100
--- NOTE | 2025-04-03 22:17 | PC.NURSE ---
Spoke to Poison Control for follow up on PT. Poision Control stated she may began to have slow nuro reflexes.
[2025-04-03 22:55] VITALS: BP 129/80; PULSE 87; RESP 18; O2SAT 97
[2025-04-03 23:53] VITALS: BP 126/70; PULSE 90; RESP 16; TEMP 37; O2SAT 96
[2025-04-04 00:40] VITALS: BP 143/67; PULSE 86; RESP 18; O2SAT 99
[2025-04-04 00:42] VITALS: BP 143/67; PULSE 86; RESP 18; TEMP 37; O2SAT 100
== END 2025-04-04 00:52 | disposition home or self-care (01) ==
PROVIDERS: Emergency Provider Student in an Organized Health Care Education/Training Program; PCP Family Medicine
DX: T42.6X1A Poisoning by other antiepileptic and sedative-hypnotic drugs, accidental (unintentional), initial encounter (principal)
CPT/HCPCS: 99285